=== PATIENT | male | born 2005 | race Caucasian/White ===

== ENCOUNTER 2023-10-13 18:06 | Outpatient (CLI) | payer OTHER | END 2023-10-13 18:07 | disposition critical access hospital (66) | LOC: EMS 18:06 | DX: S80.212A Abrasion, left knee, initial encounter (principal); S80.211A Abrasion, right knee, initial encounter; S50.811A Abrasion of right forearm, initial encounter; V28.49XA Other motorcycle driver injured in noncollision transport accident in traffic accident, initial encounter; Y92.414 Local residential or business street as the place of occurrence of the external cause | CPT/HCPCS: A0425; A0427 ==

== ENCOUNTER 2023-10-13 18:30 | Emergency (ER) | payer OTHER ==
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
[2023-10-13] MEDS ORDERED: ceFAZolin 1 GM VIAL ONE (20:03)
[2023-10-13] MEDS: BACITRACIN ZINC OINT 1 PACKET TOP STA (20:07)
[2023-10-13] MEDS: ceFAZolin 1 GM in SODIUM CHLORIDE 0.9% MINIBAG 100 ML IV STA (20:07)
[2023-10-13] MEDS: HYDROcod/ACET 5/325 Prepack 4 PO STA (20:08)
[2023-10-13] MEDS: lidocaine 1% 20 ML MDV SUBQ ONE (20:08)
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
[2023-10-13 21:08] VITALS: BP 136/80; O2SAT 98
== END 2023-10-13 20:50 | disposition home or self-care (01) ==
LOC: ED 18:30
DX: S81.012A Laceration without foreign body, left knee, initial encounter (principal); S81.011A Laceration without foreign body, right knee, initial encounter; S50.811A Abrasion of right forearm, initial encounter; V28.49XA Other motorcycle driver injured in noncollision transport accident in traffic accident, initial encounter; Y92.488 Other paved roadways as the place of occurrence of the external cause
CPT/HCPCS: 12002; 73562; 96365; 99283; 99284; A9270